=== PATIENT | male | born 1985 | race Hispanic/Latino ===

== ENCOUNTER 2016-11-18 18:59 | Emergency (ER) | payer OTHER ==
[2016-11-18] MEDS ORDERED: TYLENOL ONE (20:23)
[2016-11-18] MEDS ORDERED: TYLENOL PO ONE (20:26)
--- NOTE | 2016-11-19 01:15 | XRay Report ---
FINAL REPORT EXAM: XR FINGER(S) 2 RT HISTORY: finger pain ....trauma COMPARISON: None available. FINDINGS: Three views of the right 5th finger obtained. Soft tissue swelling and injury at the margin of the distal 5th phalanx. No acute fracture dislocation. No radiopaque foreign body. IMPRESSION: No acute bony abnormality. Soft tissue injury along the distal 5th phalanx.
--- NOTE | 2016-11-19 01:15 | Emergency Department Report ---
HPI - General Chief Complaint: Wound/Laceration Time Seen by Provider: 11/19/16 00:50 - HPI HPI: Patient here complaining of having a large door came down on his right hand and injured the tip of his pinky finger behind the nail bed. Reported that he controlled his bleeding was pressure. Reports pain is 10 out of 10. He was given Tylenol 650 mg in triage. Denies any numbness or tingling. Denies any limitation in range of motion. ED Past Medical Hx - Past Medical History Previous Medical History?: No - Surgical History Past Surgical History?: No - Family History Family history: no significant - Social History Smoking Status: Never Smoker Substance Use Type: None - Medications Home Medications: Home Medications Medication Instructions Recorded Confirmed Last Taken Type HYDROcodone/APAP 10-325 [[place] 1 each PO Q6HR PRN #25 tablet 10/05/13 Unknown Rx 10-325 mg TAB] Ibuprofen [Motrin] 800 mg PO TID PRN #30 tablet 10/05/13 Unknown Rx Promethazine [Phenergan] 25 mg PO Q6H PRN #20 tablet 10/05/13 Unknown Rx Acetaminophen/Codeine [Tylenol 1 tab PO Q6H PRN #15 tab 11/19/16 Unknown Rx /Codeine # 3 tab] Sulfamethoxazole/Trimethoprim 1 each PO BID #14 tablet 11/19/16 Unknown Rx [Bactrim DS TAB] ED Review of Systems ROS: Stated complaint: RT HAND PINKY LACERATION Other details as noted in HPI Comment: All other systems reviewed and negative Constitutional: denies: chills, fever Eyes: denies: eye pain ENT: denies: ear pain, throat pain Respiratory: no symptoms reported Cardiovascular: denies: chest pain, palpitations, edema, syncope Gastrointestinal: denies: nausea, vomiting Musculoskeletal: joint swelling, arthralgia. denies: back pain Skin: other (injury to right small finger nailbed). denies: rash Neurological: denies: headache, weakness, numbness, paresthesias, abnormal gait , vertigo Physical Exam - Physical Exam Vital Signs: Vital Signs 11/18/16 20:23 Temperature 97.9 F Pulse Rate 63 Respiratory 18 Rate Blood Pressure 133/85 O2 Sat by Pulse 97 Oximetry General: This is a 31-year-old male well-nourished well-developed acute distress. Physical Exam: Head: Normocephalic atraumatic Neck: Supple, no C-spine tenderness, no tracheal deviation. Nontender to palpate. no adenopathy Abdomen: Soft, nontender to palpate in all quadrants, normal bowel sounds in all quadrant and negative CVA tenderness bilaterally. Eyes: Bilateral pupils equal and reactive to light, bilateral EOM intact. Bilateral sclera and conjunctiva without injection. Normal accommodation. Lungs: Clear to auscultate bilaterally no rhonchi wheezes or rales. Normal work of breathing Musculoskeletal: No joint deformity.Full range of motion to all extremities. extremity; No CCE. +2 pulses. No neurovascular compromise.No subungual hematoma. Mild swelling to right small finger distal phalanx. No bleeding noted.Patient with full range of motion to extremities. Radius/ ulnar pulses are 2+. No snuffbox tenderness and no pain with axial thumb movement. No signs of compartment syndrome.no signs of tendon injury. Capillary refill less than 3 seconds. RT small finger tender to palpate at after I nailbed. Capillary refill is less than 3 seconds Skin: Clean dry. Noted superficial laceration on the part distal right fifth digit. Already healing and no need for repair.. ED Course Vital Signs 11/18/16 20:23 Temperature 97.9 F Pulse Rate 63 Respiratory 18 Rate Blood Pressure 133/85 O2 Sat by Pulse 97 Oximetry - Reevaluation(s) Reevaluation #1: 11/19/16 01:30 She received Tylenol 650 mg by mouth in triage area. He did not want anything else for pain. He just wants to get out here and go to work. 11/19/16 01:30 - Orthopedic Splinting/Casting Injury #1 Side: right Upper Extremity Injury Location: finger (fifth patient) Upper Extremity Immobilizer: aluminum form splint ED Medical Decision Making - Radiology Data Radiology results: report reviewed X-ray of hand revealed soft tissue injury to right fifth finger without any fracture or dislocation. - Medical Decision Making ED course: She received Tylenol 650 mg in emergency room at triage area when he was triage. I discussed the patient that his x-ray was negative for any fracture dislocation in his finger/hand. I discussed with him his diagnosis is contusion with finger pain and minor laceration. See procedure note for details on splinting. Finger cleansed with Betadine and irrigated with normal saline. Neosporin ointment Site and nonadhesive dressing placed. Condition discharged home to follow up with his primary care physician in 3 days. Discharged home with prescription for bactrim DS and Tylenol 3. Critical care attestation.: If time is entered above; I have spent that time in minutes in the direct care of this critically ill patient, excluding procedure time. ED Disposition Clinical Impression: Arthralgia of hand, right Nailbed laceration, finger Qualifiers: Encounter type: initial encounter Qualified Code(s): S61.319A - Laceration without foreign body of unspecified finger with damage to nail, initial encounter Contusion of finger of right hand Qualifiers: Encounter type: initial encounter Finger: little finger Damage to nail status: without damage Qualified Code(s): S60.051A - Contusion of right little finger without damage to nail, initial encounter Disposition: DISCHARGED TO HOME OR SELFCARE Is pt being admited?: No Does the pt Need Aspirin: No Condition: Stable Instructions: Laceration (ED), Contusion in Adults (ED), Arthralgia (ED) Additional Instructions: Follow-up with primary care physician in 3 days and if he do not have when he can follow-up with outside Medical Center. Take antibiotic as prescribed. Tylenol#3 can cause drowsiness. He is not drive or operate heavy machinery while taking medication. Prescriptions: Acetaminophen/Codeine [Tylenol /Codeine # 3 tab] 1 tab PO Q6H PRN #15 tab PRN Reason: Pain Sulfamethoxazole/Trimethoprim [Bactrim DS TAB] 1 each PO BID #14 tablet Referrals: KAN HOLLEY MD [Primary Care Provider] - 11/22/16 [facility] [Outside] - 11/22/16 SWATHI LONG MD [Staff Physician] - 11/22/16 Forms: Work/School Release Form(ED)
[2016-11-19 01:56] VITALS: BP 129/80
== END 2016-11-19 01:47 | disposition home or self-care (01) ==
LOC: ED 18:59
DX: S61.316A Laceration without foreign body of right little finger with damage to nail, initial encounter (principal); W31.89XA Contact with other specified machinery, initial encounter; Y93.89 Activity, other specified; Y99.9 Unspecified external cause status; Y92.89 Other specified places as the place of occurrence of the external cause